=== PATIENT | male | born 2000 | race Two or more races ===

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

== ENCOUNTER 2018-11-06 06:03 | Day surgery (SDC) | payer BC ==
--- NOTE | 2018-11-05 22:39 | PDGENHP ---
History and Physical - Chief Complaint Bilateral Hip Pain - History of Present Illness Diagnosis: 1. History of Bilateral Hip Arthroscopy 2.~~~Hypovolemic acetabulum with posterior under-coverage~(resulting in non JEFFRY type cross-over sign) 3.~~~LEFT~knee hyperextension~ROM,~s/p a knee injury~ HISTORY OF PRESENT ILLNESS: Emeraldis a~18 y.o.~very~~active~male~who I have had the pleasure to consult on today.~I have enjoyed meeting him.~He~lives in [place], [place].~~Emeraldis a freshman in college.~~He~is single;~he~has no~children. ~Emeraldenjoys soccer, basketball, football. 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 Presentation today is of~anterior,~groin~bilateral~hip pain. ~The hip~does not~ wake him~at night and~does~click and catch on~him. Sitting~can be uncomfortable~ for him.~Emeralddoes not~report suffering from lower back pain episodes. Emeraldhas~participated in physical therapy and has~tried other conservative measures including cortisone~hip injections~(2015: day or two of relief but not immediate),~PRP in both hips October 2016~(this gave him minimal benefit)~massage therapy.~He~has not~received sufficient symptomatic improvement. Emeraldhas~utilized medication for pain management, including NSAID and OTC acetaminophen.~Emeraldhas used medication since the pain began. ~ Emeraldunderstands that~rina~has a hip and pelvis problem which should be researched and wishes to get a better understanding of~his~hip status, followed by an establishment of a treatment strategy, hoping~rina~would be able to get back to~his~well being active life. History: Past medical history:~~ None which is relevant~ Relevant familial history:~None which is relevant~ Past surgical history:~ No. Surgery Anesthesia Year 1 Left Sports hernia general 2016 Emeralddenies problematic issues with general anesthesia in the past. I have reviewed, verified and agree with the past medical, surgical, family and social history. Current Medications:~currently has no medications in their medication list. ALLERGIES:~has No Known Allergies. Objective: Physical Examination: Emeraldis 5~feet~10~inches tall and weighs~135~Lbs. Emeraldis AAO x3; rina~is well -nourished, in NAD. Skin is warm and dry. ~Breathing is non-labored. ~CV with RRR by pulse. Abdomen is soft, NTND. Currently,~rina~walks with a~abnormal~antalgic~gait, favoring his RIGHT leg. Trendelenburg sign is~negative~and proprioception~is normal,~both~sides. He~presents~with no~signs of joint laxity.~Beightons Score:~0 (he hyperextended LEFT knee last year and~there is~laxity in this knee) Lower spine examination is~negative~for sciatic or femoral nerve irritation with negative~SLR &~femoral stretch tests. Range of motion of the spine is normal~for flexion, extension, and rotations,~with no~associated pain. Strength, Sensation and pulses are~normal -~bilaterally Ankles and knees exams are~normal~and~no~mal-alignment is evident.~ Rina~has~right~0.5~cm short leg length discrepancy. Thigh circumference is~symmetric~with no evidence for muscle atrophy~on both~ sides. Hip ROM (degrees): FL ER At 90~hip FL IR At 90~hip FL AB AD EX IR Neutral hip ER Neutral hip R 110 45 30 35 5 10 50 35 L 110 50 30 30 5 20 50 35 Specific hip and pelvis tests: Impingement Test GUILHERME Roll Add. Longus R +++ +++ Negative ++ L +++ +++ Negative ++ Glut. Med ITB Posterior Imp R Negative 5/5 strength Negative 5/5 strength Negative L Negative 5/5 strength Negative 5/5 strength Negative Squeeze test measured~normal Bony Symphysis pubis is~pain free~to touch while concentric activity of the rectus abdominis,~does~produce pain at its insertion: RIGHT>LEFT Ilio Psos specific tests are~negative for pain during cycling for~both hips~and remarkable for painful snap HF has~good strength no pain~both hips. Greater trochanteric burse is~pain free~on both hips. Piriformis tests: FAIR is~negative,~with no~local signs of neuritis related to sciatic nerve. SIJs examination is~normal~with~normal~GUILHERME in relation and local tenderness. Hamstrings tests are~negative~functional contraction and negative~tendinopathy both hips. Imaging: Radiology studies which I~have personally reviewed, analyzed and measured are below: XR: AP of the hip and pelvis: Performed in a~good~technique Coccyx to pubic symphysis distance~0.8~cm. 7~degrees caudal [place]~Lines are preserved. Minimal~Pathological signs are seen in the Symphysis Pubis.~ Minimal~Pathological signs are seen at the Ischial~tuberosity. ~ Specific measurements show: NSA~ LCE Sourcil~Angle Sharp's angle Lat. Cam Lat. Pincer C.Over~sign Head~Coverage % ATDmm R N 34 2 38 + - 12-2 N N L N 32 4 32 + - 12-2 N N Pos. wall sign ISS NAD ~~Dysplasia Comments R Negative Negative 9~mm Negative L Negative Negative 9~mm Negative Sclerosis Sup. Lat. OA Cysts Joint Space-WBZ Joint Space-Medial R Negative Negative Negative 3.5~mm 3.3~mm L Negative Negative Negative 3.4~mm 4.0~mm X Table lateral: Anterior cam lesion is~seen~on both hips. Alpha Angle: ~ Right~75~dergrees Left~66~degrees MRI shows:~well defined growth plates, good cartilage coverage,~labrum is Not hypertrophied Impression and plan:~ Dominik~is a~18 y.o.~active male~suffering from symptomatic~Bilateral~hip pain due to Bilateral~Femoroacetabular impingement (JEFFRY) Cam type,~with~resultant labral tear~causing significant disability to~him~and altering~his~sport and life activities. Physical examination, imaging, and~his~story correspond with the diagnosis mentioned above. I explained that femoroacetabular impingement (JEFFRY) arises due to a bony or soft tissue conflict between the femur (ball) and acetabulum (socket) caused by an abnormality in the shape of the hip joint. Over time, repetitive impingement can result in damage to the labrum and adjacent surface cartilage within the socket, ultimately giving rise to progressive osteoarthritis of the hip. I explained that although a labral tear can be a source of pain, it is rarely the root of the problem and typically occurs secondary to an underlying abnormality in the shape and mechanics of the hip joint. ~ I reviewed conservative treatment options for JEFFRY including activity modification to avoid positions of impingement, physical therapy, non-steroidal anti-inflammatory medications, and various injections (corticosteroid and PRP) aimed at reducing inflammation in the hip joint or/and preventing dynamic impingement. PRP injections may promote healing and reduce symptoms in certain cases but it will not repair chronically damaged tissue. Although these measures may help to buy time and reduce current level of symptoms, they are not a definitive solution to the problem given the underlying abnormality in the shape of the hip joint. Patients who have failed conservative management and continue to experience symptoms are candidates for hip arthroscopy, a minimally invasive surgery that can definitively address the underlying problem. Hip arthroscopy typically includes treating the labrum with either repair or reconstruction of the torn labrum; as well as addressing the underlying abnormalities by restoring the normal shape to the hip joint. ~If the cartilage is damaged a Microfracture surgical procedure may also be necessary to help stimulate the growth of fibrocartilage. ~If a patient requires a labral reconstruction or a Microfracture, the initial rehabilitation from the surgery may take longer, but the rn long term care results are typically favorable. I reviewed the technical aspects of hip arthroscopy including risks, benefits, and expected course of recovery.~Dominik~understands that hip arthroscopy is a minimally invasive outpatient procedure carried out through small incisions on the outer aspect of the hip joint. During surgery, the labral tear will be identified and either repaired or reconstructed~using bone anchors and suture material. Additionally, any excessive bone will be removed with a high-speed janie to reshape the hip joint and restore normal anatomy. Risks include infection, bleeding, injury to nearby nerves or vessels, stiffness, persistent pain, instability, venous thromboembolic disease, and traction related complications including temporary foot numbness. Rarely, revision surgery may be required to address these problems. Overall recovery takes approximately 4~ 8~months depending on the extent of damage and degree of repair. In the event that the labral tissue quality is inadequate for successful repair and healing,~Emeraldunderstands that a labral reconstruction will be performed. This procedure entails placing a cadaver tissue graft within the hip joint and stabilizing it with bone anchors to build a new labrum. The overall recovery time for labral reconstruction is similar to that of labral repair, although the surgical procedure takes longer to perform. Emeraldwill review the info presented. In order to obtain more detailed information regarding the alignment, orientation, and shape of the bony hip and pelvis I will order a CT scan to be performed. The results of the CT scan, including femoral torsion and acetabular version measured values and 3D images, will aid me in deciding on the best treatment strategy and surgical pre-planning. At this stage I believe that Dominik's pain is due to cam type JEFFRY and that his~ radiographic~cross over sign represents deficient posterior coverage rather than pincer type JEFFRY. His acetabular deficiency~(hypovilumic socket)~is not bad enough in my opinion to justify a~realignment porcedure in the form of~LAURA as a first line of treatment as there is a good chance that hip arthroscopy alone will take care of his symptoms.~ Emeraldwill contact us if he~wishes to pursue further treatment in the future. Emeraldis happy with this plan. I have also supplied~shaggy~with handouts, outlining the expected surgical treatment and rehab involved. I wishChavezall the best, ~~ Jarrett Guy, PAC History Information - Allergies/Home Medication List Allergies/Adverse Reactions: No Known Allergies Allergy (Unverified 09/05/17 16:07) Home Medications: ALBUTEROL SULFATE PRN 09/05/17 [Last Taken Unknown] I have personally reviewed and updated: medical history - Social History Smoking Status: Never smoked Review of Systems Review of Systems: Physical Exam Physical Exam:
[2018-11-06] MEDS ORDERED: LR 1,000 ML IV ONE (07:24)
[2018-11-06] MEDS ORDERED: ACETAMINOPHEN 500 MG TAB PO ONE (07:24)
[2018-11-06] MEDS ORDERED: PREGABALIN 150 MG CAP PO ONE (07:24)
[2018-11-06] MEDS ORDERED: ceFAZolin 2 GM/DEXTROSE 100 ML IV ONE (07:24)
[2018-11-06] MEDS ORDERED: MIDAZOLAM 2 MG/2 ML VIAL IVP ONE (09:17)
--- NOTE | 2018-11-06 09:17 | PDANEPAE ---
ANE History of Present Illness Scar tissue here for hip arthroscopy and debridement ANE Past Medical History - Cardiovascular History Hx Hypertension: No Hx Arrhythmias: No Hx Chest Pain: No Hx Coronary Artery / Peripheral Vascular Disease: No Hx CHF / Valvular Disease: No Hx Palpitations: No - Pulmonary History Hx COPD: No Hx Asthma/Reactive Airway Disease: Yes Hx Recent Upper Respiratory Infection: No Hx Oxygen in Use at Home: No Hx Sleep Apnea: No Sleep Apnea Screening Result - Last Documented: Negative Pulmonary History Comment: ENVIRONMENTAL ASTHMA. 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 LT HERNIA ANE Review of Systems Review of Systems: - Exercise capacity METS (RN): 6 METS ANE Patient History - Allergies Allergies/Adverse Reactions: No Known Allergies Allergy (Unverified 09/05/17 16:07) - Home Medications Home Medications: ALBUTEROL SULFATE PRN 09/05/17 [Last Taken 01/10/18] - NPO status NPO Status: no food or drink >8 hours NPO Since - Liquids (Date): 11/05/18 NPO Since - Liquids (Time): 23:33 NPO Since - Solids (Date): 11/05/18 NPO Since - Solids (Time): 21:00 - Anes Hx Anes Hx: no prior problems - Smoking Hx Smoking Status: Never smoked - Alcohol Use Alcohol Use: None - Family Anes Hx Family Anes Hx: none Family Hx Anesthesia Complications: NEG ANE Labs/Vital Signs - Vital Signs Blood Pressure: 131/84 Heart Rate: 58 Respiratory Rate: 20 O2 Sat (%): 97 Height: 180.34 cm Weight: 62.596 kg ANE Physical Exam - Airway Neck exam: FROM Mallampati Score: Class 2 Mouth exam: normal dental/mouth exam Mouth image: 1 - chipped tooth - Pulmonary Pulmonary: no respiratory distress, clear to auscultation - Cardiovascular Cardiovascular: regular rate and rhythym, no murmur, rub, or gallop - ASA Status ASA Status: II ANE Anesthesia Plan Anesthesia Plan: general endotracheal anesthesia
[2018-11-06] MEDS ORDERED: BUPIVACAINE/EPI 0.25% 30 ML SDV ONE (09:21)
[2018-11-06] MEDS ORDERED: EPINEPHrine 30 MG/30 ML MDV (0.1 MG/0.1 ML) ONE (09:21)
[2018-11-06] MEDS ORDERED: fentaNYL 100 MCG/2 ML INJ ONE ×2 (09:22→13:30)
[2018-11-06] MEDS ORDERED: ROCURONIUM 50 MG/5 ML VIAL ONE (09:22)
[2018-11-06] MEDS ORDERED: LIDOCAINE 2% 100 MG/5 ML SYR ONE (09:22)
[2018-11-06] MEDS ORDERED: PROPOFOL 200 MG/20 ML VIAL ONE (09:22)
[2018-11-06] MEDS ORDERED: LABETALOL HCL 5 MG/ML 20 ML MDV ONE (10:38)
[2018-11-06] MEDS ORDERED: ONDANSETRON 4 MG/2 ML VIAL ONE (10:40)
[2018-11-06] MEDS ORDERED: DEXAMETHASONE 4 MG/ML VIAL ONE (10:40)
[2018-11-06] MEDS ORDERED: HYDROmorphONE/DILAUDID 2 MG/ML INJ ONE (10:44)
[2018-11-06] MEDS ORDERED: KETOROLAC 30 MG/1 ML SDV ONE (13:07)
[2018-11-06] MEDS ORDERED: HYDROmorphONE/DILAUDID 1 MG/ML INJ IVP PRN (13:25)
[2018-11-06] MEDS ORDERED: ONDANSETRON 4 MG/2 ML VIAL IVP PRN (13:25)
[2018-11-06] MEDS ORDERED: NALOXONE HCL 0.4 MG/ML INJ IVP PRN (13:25)
[2018-11-06] MEDS ORDERED: oxyCODONE IR 5 MG TAB PO PRN (13:25)
[2018-11-06] MEDS ORDERED: PROMETHAZINE HCL 25 MG/ML INJ IVP PRN (13:25)
[2018-11-06] MEDS ORDERED: ACETAMINOPHEN 500 MG TAB PO PRN (13:25)
--- NOTE | 2018-11-06 13:26 | POSTANESTH ---
Post Anesthetic Evaluation Cardiovascular Status: Normal, Stable, Similar to Pre-Op Cond Respiratory Status: Normal, Stable, Similar to Pre-op Cond. Level of Consciousness/Mental Status: Can Participate in Eval, Alert and Oriented Pain Control: Adequate, Prn Tx Ordered Nausea/Vomiting Control: Adequate, Prn Tx Ordered Complications Possibly Related to Anesthesia: None Noted
[2018-11-06] MEDS: fentaNYL 100 MCG/2 ML INJ IVP PRN ×3 (13:33→13:53)
[2018-11-06] MEDS ORDERED: HYDROCODONE/APAP 5/325 TAB ONE ×2 (14:36→16:31)
[2018-11-06] MEDS: HYDROCODONE/APAP 5/325 TAB PO PRN ×2 (14:43→16:39)
[2018-11-06 16:41] VITALS: BP 106/55
== END 2018-11-06 17:01 | disposition home or self-care (01) ==
LOC: FSGY 06:03
PROVIDERS: ATTEND Orthopaedic Surgery Sports Medicine
PROC: 0SBB4ZZ Excision of Left Hip Joint, Percutaneous Endoscopic Approach (ICD-10-PCS; principal; 2018-11-06 10:00)
PROC: BQ111ZZ Fluoroscopy of Left Hip using Low Osmolar Contrast (ICD-10-PCS; principal; 2018-11-06 10:00)
DX: M24.852 Other specific joint derangements of left hip, not elsewhere classified (principal)
CPT/HCPCS: C1713; J0171; J0690; J1100; J1170; J1885; J2001; J2250; J2405; J2704; J3010